=== PATIENT | male | born 1950 ===

== ENCOUNTER 2022-10-04 18:27 | Emergency (ER) | payer OTHER ==
[2022-10-04] MEDS: Lidocaine 2% with EPINEPHrine 1:100,000 20 ML MDV INJECT ONE (18:58)
[2022-10-04] MEDS: Bacitracin Oint 1 GM U/D Packet TOP ONE (19:07)
== END 2022-10-04 19:25 | disposition home or self-care (01) ==
LOC: LL.ED 18:27
DX: S61.511A Laceration without foreign body of right wrist, initial encounter (principal); W26.8XXA Contact with other sharp object(s), not elsewhere classified, initial encounter
CPT/HCPCS: 12002; 99282; 99283; J3490